=== PATIENT | female | born 1955 | race American Indian/Alaskan Native ===

== ENCOUNTER 2021-05-29 07:39 | Day surgery (SDC) | payer MEDICARE ==
--- NOTE | 2021-04-26 13:22 | Anesthesia Consultation ---
Anesthesia Consult and Med Hx Date of service: 05/01/21 - Airway Anesthetic Teeth Evaluation: Poor (denies loose teeth), Partials ROM Head & Neck: Adequate Mental/Hyoid Distance: Adequate Mallampati Class: Class III Intubation Access Assessment: Possibly Difficult - Pulmonary Exam CTA: Yes - Cardiac Exam Cardiac Exam: RRR - Pre-Operative Health Status ASA Pre-Surgery Classification: ASA3 Proposed Anesthetic Plan: General - Pulmonary Hx Smoking: No Hx Asthma: Yes (no recent inhaler use) - Cardiovascular System Hx Hypertension: Yes Hx Heart Attack/AMI: No Hx Percutaneous Transluminal Coronary Angioplasty (PTCA): No Hx Cardia Arrhythmia: Yes (reports chronic hx intermitent, asymptomatic arrhythmia) Hx Pacemaker: No Hx Internal Defibrillator: No - Central Nervous System CVA: Yes (>3yrs ago; 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 On my exam, patient had regular rate/rhythm. She den ies dyspnea, chest pain, palpitations, dizziness. Does report hx arrhythmia for which she has seen cardiology in the past but not in recent months. Preop PCP evaluation reviewed along with most recent EKG 02/2021 which showed NSR. Patient instructed to take metoprolol DOS.
[~2021-05-29 07:39] MED LIST: LACTATED RINGERS 1,000 ML IV SCH
--- NOTE | 2021-05-29 07:58 | History and Physical Report ---
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 Family/Genetic History: none Social history: no significant social history - Obstetrical History : 7 Para: 7 Hx # Term Pregnancies: 7 Number of Pregnancies: 0 Spontaneous Abortions: 0 Induced : 0 Number of Living Children: 7 Medications and Allergies Allergies Allergy/AdvReac Type Severity Reaction Status Date / Time ibuprofen Allergy Swelling Verified 11/08/15 12:41 naproxen Allergy Swelling Verified 11/08/15 11:57 Home Medications Medication Instructions Recorded Confirmed Last Taken Type Albuterol *Only Ed* 1 puff INHALATION PRN 04/24/21 04/24/21 Unknown History Gabapentin 100 mg PO TID 04/24/21 04/24/21 Unknown History Metoprolol [Lopressor TAB] 50 mg PO DAILY 04/24/21 04/24/21 Unknown History Simvastatin 40 mg PO DAILY 04/24/21 04/24/21 Unknown History Telmisartan 40 mg PO DAILY 04/24/21 04/24/21 Unknown History Review of Systems All systems: negative - Vital Signs Vital signs: Vital Signs Temp Pulse Resp BP Pulse Ox 98.5 F 93 H 20 135/75 100 04/26/21 10:45 04/26/21 10:45 04/26/21 10:45 04/26/21 10:45 04/26/21 10:45 Temp Pulse Resp BP Pulse Ox 98.5 F 93 H 20 135/75 100 04/26/21 10:45 04/26/21 10:45 04/26/21 10:45 04/26/21 10:45 04/26/21 10:45 - Physical Exam Breasts: Positive: deferred Cardiovascular: No murmurs Lungs: Positive: Clear to auscultation Abdomen: Positive: soft Extremities: Positive: normal Results All other labs normal. Assessment and Plan A: CHANEL II H/o irregular heart beat, anesthesia aware Hypertension Asthma Arthritis P: Proceed with Loop Electrosurgical Excision Procedure and other indicated procedures
[2021-05-29] MEDS ORDERED: ceFAZolin/Water 2 GM/20 ML 2 GM/20 ML SYRINGE IV NR (08:00)
[2021-05-29] MEDS ORDERED: LACTATED RINGERS 1,000 ML IV SCH (08:00)
--- NOTE | 2021-05-29 08:42 | Anesthesia Day of Surgery ---
Anesthesia Day of Surgery - Day of Surgery Patient Examined: Yes Patient H&P Reviewed: Yes Patient is NPO: Yes Beta Blockers: Yes
[2021-05-29] MEDS ORDERED: HYDROmorphone 1 MG/1 ML INJ IV PRN ×2 (08:43→09:00)
[2021-05-29] MEDS ORDERED: MIDAZOLAM 2 MG/2 ML INJ IV NR (09:00)
[2021-05-29] MEDS ORDERED: ONDANSETRON 4 MG/2 ML INJ IV PRN (09:00)
[2021-05-29] MEDS ORDERED: BUPIVACAINE/PF (0.5%) 5 MG/1 ML 30 ML VIAL INFILTRATI ONE (10:17)
[2021-05-29] MEDS ORDERED: SILVER NITRATE APPLICATOR 1 EA TP ONE (10:17)
[2021-05-29] MEDS ORDERED: POTASSIUM IODIDE/IODINE (LUGOLS) 30 ML TP ONE ×2 (10:18→11:11)
[2021-05-29] MEDS ORDERED: VASOPRESSIN 20 UNIT/1 ML INJ ONE (10:18)
[2021-05-29] MEDS ORDERED: SODIUM CHLORIDE 0.9% 100 ML ONE (10:18)
[2021-05-29] MEDS ORDERED: FERRIC SUBSULFATE TOPICAL SOLN 8 ML TP ONE (10:20)
[2021-05-29] MEDS ORDERED: ONDANSETRON 4 MG/2 ML INJ ONE (10:22)
[2021-05-29] MEDS ORDERED: LIDOCAINE MPF (2%) 20 MG/1 ML VIAL 5 ML ONE (10:22)
[2021-05-29] MEDS ORDERED: dexAMETHasone 20 MG/5 ML VIAL ONE (10:22)
[2021-05-29] MEDS ORDERED: propofoL 200 MG/20 ML VIAL IV ONE (10:23)
[2021-05-29] MEDS ORDERED: fentaNYL 100 MCG/2 ML INJ ONE (10:23)
[2021-05-29] MEDS ORDERED: VASOPRESSIN 20 UNIT/1 ML INJ IM ONE (11:10)
[2021-05-29] MEDS ORDERED: SODIUM CHLORIDE 0.9% 100 ML IVPB IV ONE (11:11)
--- NOTE | 2021-05-29 12:18 | Operative Report ---
Operative Report Operative Report: Date of procedure: May 29, 2021 Preoperative diagnosis: CHANEL II Postoperative diagnosis: Same Procedure: Loop Electrosurgical Excision Procedure (LEEP), Repair of Vaginal Mucosa Surgeon: Tatiana Dacosta MD Anesthesia: General with LMA Findings: 1) Circumferential non-staining area of cervix after application of Lugol's solution 2) Posterior lip of cervix flush with vaginal mucosa EBL: 20 mL Specimens: Anterior cervix to pathology Drains: None Complications: None. Counts correct x 2 Disposition: stable to PACU Indication for procedure: Pt is a 65 year old who presents with surgical management of CHANEL II on colposcopic biopsy. Operation in detail: After the risks, benefits, alternatives, and complications were explained to the patient, she gave informed consent for the procedure. She was subsequently taken to the operating room with her IV noted to be running well and placed in the d orsal supine position. SCDs were noted to be in place and functioning. General anesthesia was induced without difficulty. The patient was then placed in the dorsal lithotomy position and prepped and draped in a normal sterile fashion. A timeout was performed. The bladder was drained of urine prior to the start of the procedure. A coated speculum was then placed in the vagina for visualization of the cervix. A coated tenaculum was placed on the anterior lip of the cervix for traction. The cervix was injected with 10 mL of a dilute Vasopressin solution at 12, 3 , 6, and 9 o'clock. Lugol's solution was then placed on cervix with circumferential non- staining area around the external cervical os. A medium loop was used to excise a cervical biopsy sent to pathology. At that time, it was noted that the posterior lip of the cervix was flush with the vaginal mucosa anf the vaginal mucosa was interrupted during the excision of the cervical specimen. 2-0 Vicryl was used in a running locked fashion to obtain hemostasis. A figure of eight of 2-0 Vicryl was placed at the left edge of the cervix for hemostasis. Hemostasis was noted. Surgicel was placed in over the cervical bed. Hemostasis was noted. The tenaculum was removed atraumatically. All instruments were removed from the vagina atraumatically and the procedure was then ended. The patient was then replaced into the dorsal supine position and extubated without difficulty. She was then taken to the PACU in stable condition. All counts were correct x 2.
--- NOTE | 2021-05-29 12:23 | Short Stay Summary ---
Short Stay Documentation Date of service: 05/29/21 - History H&P: dictated Social history: no significant social history - Allergies and Medications Current Medications: Allergies ibuprofen Allergy (Verified 11/08/15 12:41) Swelling naproxen Allergy (Verified 11/08/15 11:57) Swelling Home Medications Medication Instructions Recorded Confirmed Last Taken Type Albuterol *Only Ed* 1 puff INHALATION PRN 04/24/21 04/24/21 Unknown History Gabapentin 100 mg PO TID 04/24/21 04/24/21 Unknown History Metoprolol [Lopressor TAB] 50 mg PO DAILY 04/24/21 04/24/21 Unknown History Simvastatin 40 mg PO DAILY 04/24/21 04/24/21 Unknown History Telmisartan 40 mg PO DAILY 04/24/21 04/24/21 Unknown History Active Medications Hydromorphone HCl (Hydromorphone 1 Mg/1 Ml Inj) 0.25 mg IV Q10MIN PRN PRN Reason: Pain, Moderate (4-6) Stop: 05/29/21 23:00 Hydromorphone HCl (Hydromorphone 1 Mg/1 Ml Inj) 0.5 mg IV Q10MIN PRN PRN Reason: Pain , Severe (7-10) Stop: 05/29/21 23:00 Lactated Ringer's (Lactated Ringers) 1,000 mls @ 75 mls/hr IV DIRECT SIMRAN Cefazolin Sodium (Ancef/Sterile Water 2 Gm/20 Ml) 2 gm in 20 mls @ 80 mls/hr IV PREOP NR; Protocol Stop: 05/29/21 20:00 Midazolam HCl (Midazolam 2 Mg/2 Ml Inj) 2 mg IV PREOP NR Stop: 05/29/21 23:59 - Physical exam Breasts: deferred - Brief post op/procedure progress note Date of procedure: 05/29/21 Pre-op diagnosis: CHANEL II Post-op diagnosis: same Procedure: LEEP, repair of vaginal mucosa Anesthesia: GETA (LMA ) Findings: 1) Circumferential non-staining area of cervix after application of Lugol's solution 2) Posterior lip of cervix flush with vaginal mucos Surgeon: EDGARDO DACOSTA Estimated blood loss: minimal (20 mL) Pathology: list (anterior cervix to pathology) Specimen disposition: to lab Condition: stable - Hospital course Hospital course: Patient underwent loop electrosurgical excision procedure and repair of vaginal mucosa which she tolerated well. She was observed in the PACU until she met discharge criteria. She will follow-up in 1 week in the office of Dr. Dacosta. - Disposition Condition at discharge: Stable Disposition: 01 HOME / SELF CARE / HOMELESS - Discharge Diagnoses (1) CHANEL II (cervical intraepithelial neoplasia II) Status: Acute (2) Hypertension Status: Acute Qualifiers: Hypertension type: unspecified Qualified Code(s): I10 - Essential (primary) hypertension Short Stay Discharge Plan Activity: other (Nothing in vagina, no intercourse, no tub baths x 6 wks ) Weight Bearing Status: Full Weight Bearing Diet: regular Follow up with: URMILA MAYER MD [Primary Care Provider] - 7 Days EDGARDO DACOSTA MD [Staff Physician] - 06/10/21 Prescriptions: HYDROcodone/APAP 5-325 [[place] 5/325] 1 each PO Q6HR PRN #30 tablet PRN Reason: Pain
[2021-05-29 13:53] VITALS: BP 120/77
--- NOTE | 2021-05-29 18:00 | Post Anesthesia Evaluation ---
- Post Anesthesia Evaluation Patient Participated: Yes Airway Patent: Yes Stable Respiratory Function: Yes Nausea/Vomiting: No Temp > 96.8F: Yes Pain Manageable: Yes Adequeate Hydration: Yes Anesthesia Complications: No Block Receding Appropriately: Not Applicable Patient on Ventilator: No
== END 2021-05-29 13:40 | disposition home or self-care (01) ==
LOC: OR 07:39
PROVIDERS: ATTEND Obstetrics & Gynecology
DX: N87.1 Moderate cervical dysplasia (principal); Z20.822 Contact with and (suspected) exposure to COVID-19; I10 Essential (primary) hypertension; J45.909 Unspecified asthma, uncomplicated; M19.90 Unspecified osteoarthritis, unspecified site; E66.9 Obesity, unspecified; Z68.39 Body mass index [BMI] 39.0-39.9, adult; Z86.73 Personal history of transient ischemic attack (TIA), and cerebral infarction without residual deficits; Z79.899 Other long term (current) drug therapy; Z88.8 Allergy status to other drugs, medicaments and biological substances; Z90.49 Acquired absence of other specified parts of digestive tract; Z98.890 Other specified postprocedural states
CPT/HCPCS: 57522; 88307; J0690; J1100; J2250; J2405; J2704; J3010; J3490; J7120; U0003; 88305